=== PATIENT | male | born 2000 | race Caucasian/White ===

== ENCOUNTER 2018-06-09 17:11 | Emergency (ER) | payer BC ==
[~2018-06-09] VITALS: Ht 195.6 cm; Wt 115.9 kg
[2018-06-09 18:07] LABS: BASO % 0.2 % (0.0-2.0); GRAN # 7.9 (1.4-6.5); HEMATOCRIT 48.2 % (36.0-47.0); HEMOGLOBIN 16.1 g/dl (12.5-16.1); LYMPH # 0.4 (1.2-3.4); LYMPH % 4.4 % (20.0-51.0); MEAN CELL VOLUME 93 fl (80.0-95.0); MEAN CORPUSCULAR HEMOGLOBIN 31 pg (26.0-32.0); MEAN CORPUSCULAR HGB CONC 33 g/dl (33.0-37.0); MEAN PLATELET VOLUME 11.4 fl (7.4-10.4); MONO # 0.6 (0.1-0.6); MONO % 7.1 % (1.7-9.3); PLATELET COUNT 229 K/mm3 (130-400); REDCELL DISTRIBUTION WIDTH-CV 12.5 % (11.5-14.5)
[2018-06-09 18:21] LABS: ALBUMIN 4.5 gm/dL (3.5-5.0); BILIRUBIN,TOTAL 1.2 mg/dL (0.0-1.0); C-REACTIVE PROTEIN 5.3 mg/dL (0.0-0.9); CALCIUM 9.4 mg/dL (8.4-10.2); CREATININE, serum 1.41 (0.66-1.25); POTASSIUM 3.8 mmol/L (3.4-5.0); TOTAL PROTEIN 7.8 gm/dL (6.4-8.2)
[2018-06-09] MEDS ORDERED: ZOFRAN ODT4 MG PO (20:17)
[2018-06-09 20:33] VITALS: BP 129/42; TEMP 99.4
[2018-06-09 21:21] VITALS: PULSE 97
== END 2018-06-09 21:15 | disposition home or self-care (01) ==
LOC: COL.ER 17:11
PROVIDERS: Physician Assistant
DX: R10.32 Left lower quadrant pain (principal); R11.2 Nausea with vomiting, unspecified
CPT/HCPCS: J1885; J2405; J2550; J3010; J7030; Q9967